=== PATIENT | male | born 1990 | race Caucasian/White ===

== ENCOUNTER 2022-07-09 11:03 | Inpatient (IN) | payer MEDICAID, SELFPAY ==
[2022-07-09 11:06] VITALS: BP 131/92; PULSE 72; RESP 16; O2SAT 97
--- NOTE | 2022-07-09 11:14 | ED_ITS ---
HPI - General Adult General: Chief complaint: Psychiatric Symptoms Stated complaint: SI Time Seen by Provider: 07/09/22 11:05 History of Present Illness: HPI: []yo patient w/ hx of depression presenting to request a behavioral health center for concerns for depression. Patient tells me that he is feeling very depressed and would like to get help. Reports SI without any plan. On arrival, the patient is AAOx3 and cooperative with my evaluation. No focal complaints of chest pain, shortness of breath, palpitations, N/V, focal GI/ complaints. Currently denies HI. No complaints of hallucinations. Onset: acute on chronic Duration: ongoing Location: home Severity: severe Associated symptoms: Deny chest pain, dyspnea, nausea, rash, palpitations or vomiting Review of Systems Const: Denies: fever(s) or chills Eyes: Denies: change in vision ENMT: Denies: mouth pain Card: Denies: chest pain or palpitations Resp: Denies: dyspnea or non-productive cough GI: Denies: abdominal pain, nausea, vomiting or diarrhea : Denies: dysuria Musc: Denies: extremity pain Skin/Breast: Denies: rash or new lesions Neuro: Denies: weakness in extremities Psych: Reports: depression and suicidal ideation Jacob/Lymph: Denies: easy bruising PFSH ED PFSH: Medical History Depression Surgical History History of tonsillectomy Hx of cholecystectomy Family History Mother Cancer thyroid Hypertension Brother Psychiatric illness Other Diabetes Denies family history of CAD (coronary artery disease) Clotting disorder Chronic kidney disease (CKD) Bleeding disorder Stroke Social History Smoking and tobacco status: former smoker Quit status (tobacco): has quit using tobacco Year quit tobacco: 2014 Former quit date comment: 2-3 PPD x 15 yrs Second hand smoke exposure: No Alcohol intake: never Adopted: No Caregiver/support person: Yes Lives independently: Yes Household members: none Marital status: service: No Current occupational status: employed Current occupation: construction History of recent travel: Yes ([place]) Out of state: Yes Current gender identity: Male Cee/Congregation: Oriental orthodox Special cee needs: Yes Agree to transfusion: No Physical Exam Const: COMMON NORMALS: alert HENMT: COMMON NORMALS: atraumatic HEAD & SCALP: atraumatic MOUTH: moist mucous membranes not abnormal Eye: COMMON NORMALS: EOMs intact bilaterally and conjunctivae normal CONJUNCTIVA: Yes conjunctivae normal Neck/C-Spine: COMMON NORMALS: full ROM and supple Resp: COMMON NORMALS: normal respiratory effort and clear to auscultation bilaterally AUSCULTATION: clear to auscultation bilaterally Cardio: COMMON NORMALS: regular rate RATE: regular rate GI: COMMON NORMALS: Soft to palpation and non-tender PALPATION: Yes Soft to palpation Extremity: COMMON NORMALS: full ROM Neuro: SENSORIUM/ORIENTATION: Yes alert MOTOR EXAM: No Abnormal motor strength present and Other motor observations present (no focal motor deficits) Psych: COMMON NORMALS: speech normal SPEECH: Yes normal speech MOOD & AFFECT: Yes depressed mood Course Vital Signs: Vital signs: Vital Signs Pulse Rate 72 07/09/22 11:06 Respiratory Rate 16 07/09/22 11:06 Blood Pressure 131/92 07/09/22 11:06 Pulse Oximetry 97 07/09/22 11:06 Oxygen Delivery Me thod 07/09/22 11:06 MDM - General Adult Medical Decision Making [31]yo patient w/ hx of dperession presenting for SI with worsening depression at the request of [facility]. HDS, exam within normal limit Thoughts are linear and organized, and the patient has no AH/VH, or HI. Clinically the patient displays no overt toxidrome; they are well appearing, with low suspicion for toxic ingestion given history and exam. Symptoms unlikely 2/2 anemia, hypothyroidism, infection, or ICH. Workup: CBC, CMP, Lipase, salicylate/tylenol, serum ethanol, UDS Lab findings: wnl [1:00pm] On reassessment, labs and workup wnl. Patient is hemodynamically stable with no acute medical complaints. Case discussed with psychiatric provider Dr. Dubois at [facility] psych inpatient with recommendation for admission Disposition: Psych Lab Data : 07/09/22 11:34 07/09/22 11:34 Laboratory Results WBC 5.2 10^3/uL (4.0-10.0) 07/09/22 11:34 RBC 4.79 10^6/uL (4.1-5.3) 07/09/22 11:34 Hgb 15.3 g/dL (11.7-16.6) 07/09/22 11:34 Hct 45.9 % (42.0-52.0) 07/09/22 11:34 MCV 95.8 fl (80-94) H 07/09/22 11:34 MCH 31.9 pg (28.0-34.0) 07/09/22 11:34 MCHC 33.3 g/dL (30.0-36.0) 07/09/22 11:34 RDW 13.2 % (12.1-15.1) 07/09/22 11:34 Plt Count 336 10^3/cmm (130-400) 07/09/22 11:34 MPV 9.5 fL (7.4-10.4) 07/09/22 11:34 Neut % (Auto) 50.8 % 07/09/22 11:34 Lymph % (Auto) 38.0 % 07/09/22 11:34 [place] % (Auto) 8.3 % 07/09/22 11:34 Eos % (Auto) 1.9 % 07/09/22 11:34 Baso % (Auto) 0.6 % 07/09/22 11:34 Neut # (Auto) 2.63 10^3/uL (1.8-7.7) 07/09/22 11:34 Lymph # (Auto) 2.0 10^3/uL (0.8-4.8) 07/09/22 11:34 [place] # (Auto) 0.4 10^3/uL (0.2-0.9) 07/09/22 11:34 Eos # (Auto) 0.1 10^3/uL (0.0-0.8) 07/09/22 11:34 Baso # (Auto) 0.0 10^3/uL (0.0-0.1) 07/09/22 11:34 Nucleated RBC % (auto) 0 % 07/09/22 11:34 Nucleated RBCs # 0.0 /100WBC 07/09/22 11:34 Sodium 143 mmol/L (136-145) 07/09/22 11:34 Potassium 4.0 mmol/L (3.5-5.1) 07/09/22 11:34 Chloride 105 mmol/L (98-107) 07/09/22 11:34 Carbon Dioxide 30 mmol/L (22-29) H 07/09/22 11:34 Anion Gap 12.0 (5-19) 07/09/22 11:34 BUN 8 mg/dL (6-20) 07/09/22 11:34 Creatinine 0.6 mg/dL (0.7-1.2) L 07/09/22 11:34 GFR Calculation 156.1 mL/min (90-130) H 07/09/22 11:34 Glucose 88 mg/dL (65-115) 07/09/22 11:34 Calculated Osmolality 294 mOsm/kg (285-295) 07/09/22 11:34 Calcium 9.4 mg/dL (8.5-10.5) 07/09/22 11:34 Total Bilirubin 0.3 mg/dL (0.15-1.2) 07/09/22 11:34 AST 17 U/L (0-40) 07/09/22 11:34 ALT 34 U/L (0-41) 07/09/22 11:34 Alkaline Phosphatase 91 U/L (40-130) 07/09/22 11:34 Total Protein 7.3 g/dL (6.6-8.7) 07/09/22 11:34 Albumin 4.3 g/dL (3.5-5.2) 07/09/22 11:34 Globulin 3.0 g/dL (1.3-4.6) 07/09/22 11:34 Lipase 21 U/L (13-60) 07/09/22 11:34 Salicylates < 0.3 mg/dL (3-10) L 07/09/22 11:34 Acetaminophen < 5.0 ug/mL (10-30) L 07/09/22 11:34 Ethyl Alcohol < 10 mg/dL (0-10) 07/09/22 11:34 Discharge Plan Discharge Patient Disposition: Admitted As Inpatient Clinical Impression: Depression with suicidal ideation Condition: Stable Coding Level of Care Code ED Courtesy Booth Cashier for Chg Fwd Exam Comprehensive
[2022-07-09 11:52] LABS: Basophils % 0.6 %; Eosinophils # 0.1 10^3/uL (0.0-0.8); Eosinophils % 1.9 %; Hematocrit 45.9 % (42.0-52.0); Hemoglobin 15.3 g/dL (11.7-16.6); Mean Corpuscular HGB Conc 33.3 g/dL (30.0-36.0); Mean Corpuscular Hemoglobin 31.9 pg (28.0-34.0); Mean Corpuscular Volume 95.8 fl (80-94); Mean Platelet Volume 9.5 fL (7.4-10.4); Monocytes # 0.4 10^3/uL (0.2-0.9); Monocytes % 8.3 %; Neutrophils # 2.63 10^3/uL (1.8-7.7); Neutrophils % 50.8 %; Nucleated Red Blood Cells % 0 %; Platelet Count 336 10^3/cmm (130-400); Red Blood Count 4.79 10^6/uL (4.1-5.3); Red Cell Distribution Width 13.2 % (12.1-15.1); White Blood Count 5.2 10^3/uL (4.0-10.0)
[2022-07-09 11:57] LABS: Alanine Aminotransferase 34 U/L (0-41); Albumin Level 4.3 g/dL (3.5-5.2); Alkaline Phosphatase 91 U/L (40-130); Aspartate Amino Transferase 17 U/L (0-40); Blood Urea Nitrogen 8 mg/dL (6-20); Calcium 9.4 mg/dL (8.5-10.5); Carbon Dioxide 30 mmol/L (22-29); Chloride 105 mmol/L (98-107); Glomerular Filtration Rate 156.1 mL/min (90-130); Glucose 88 mg/dL (65-115); Lipase 21 U/L (13-60); Osmolality Calculated 294 mOsm/kg (285-295); Sodium 143 mmol/L (136-145); Total Bilirubin 0.3 mg/dL (0.15-1.2); Total Protein 7.3 g/dL (6.6-8.7)
--- NOTE | 2022-07-09 11:58 | PC.PHAR ---
[facility] PT USED TO TAKE WELBUTRIN XL 300MG LAST FILLED AND PICKED UP 04/19/22 30DS AND MERTAZAPINE 15MG FILLED 04/19/22 30DS
[2022-07-09 12:01] LABS: Acetaminophen < 5.0 ug/mL (10-30); Alcohol Level < 10 mg/dL (0-10); Salicylate < 0.3 mg/dL (3-10)
[2022-07-09 13:30] VITALS: BP 125/79; PULSE 59; RESP 20; O2SAT 97
--- NOTE | 2022-07-09 14:50 | PC.NURSE ---
pt resting in bed, offered food/beverage. pt declined. pt currently laying in bed watching tv
--- NOTE | 2022-07-09 16:17 | PC.NURSE ---
attempted to collect urine sample from pt, pt unable to provide sample at this time. adjusted HOB for comfort
[2022-07-09 17:01] VITALS: BP 101/64; PULSE 61; RESP 16; TEMP 36.4; O2SAT 98
[2022-07-09 17:28] VITALS: BP 101/64; PULSE 61; RESP 16; TEMP 36.4
[2022-07-09] MEDS: OLANZapine 5 mg ODT PO (18:26)
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
[2022-07-09 21:49] LABS: Amphetamines Screen Urine Negative (Negative); Barbiturates Screen Urine Negative (Negative); Benzodiazepines Screen Urine Negative (Negative); Cocaine Screen Urine Negative (Negative); Opiate Screen Urine Negative (Negative); PCP Screen Urine Negative (Negative); THC Screen Urine Positive (Negative)
[2022-07-09 22:00] VITALS: BP 101/64; PULSE 61; RESP 16; TEMP 36.4
[2022-07-10 06:00] VITALS: BP 99/57; PULSE 52; RESP 16; TEMP 36.7; O2SAT 94
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
[2022-07-10 12:18] VITALS: BP 99/57; PULSE 52; RESP 16; TEMP 36.7; O2SAT 94
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
--- NOTE | 2022-07-12 08:18 | PC.OT ---
OT EVALUATION ORDERS RECEIVED. PATIENT DISCHARGED BEFORE EVALUATION COULD BE COMPLETED.
== END 2022-07-10 12:50 | disposition home or self-care (01) | DRG 881 ==
LOC: ER 11:13 → NP 16:54
PROVIDERS: Admitting Provider Psychiatry & Neurology Psychiatry; Emergency Provider Emergency Medicine; Visit Provider Psychiatry & Neurology Psychiatry
DX: F32.A Depression, unspecified (principal); R45.851 Suicidal ideations; Z87.891 Personal history of nicotine dependence
CPT/HCPCS: 36415; 80053; 80306; 80307; 83690; 85025; 99285

== ENCOUNTER 2022-07-19 15:02 | Emergency (ER) | payer MEDICAID, SELFPAY ==
[2022-07-19 15:21] VITALS: BP 122/77; PULSE 92; RESP 18; TEMP 36.9; O2SAT 97; BMI 31.8
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
[2022-07-19 16:59] LABS: Basophils # 0.1 10^3/uL (0.0-0.1); Basophils % 0.6 %; Eosinophils # 0.2 10^3/uL (0.0-0.8); Eosinophils % 1.9 %; Hematocrit 46.1 % (42.0-52.0); Hemoglobin 15.3 g/dL (11.7-16.6); Lymphocytes # 2.4 10^3/uL (0.8-4.8); Lymphocytes % 27.1 %; Mean Corpuscular HGB Conc 33.2 g/dL (30.0-36.0); Mean Corpuscular Hemoglobin 32.3 pg (28.0-34.0); Mean Corpuscular Volume 97.5 fl (80-94); Mean Platelet Volume 9.4 fL (7.4-10.4); Monocytes # 0.8 10^3/uL (0.2-0.9); Monocytes % 9.2 %; Neutrophils % 60.6 %; Nucleated Red Blood Cells % 0 %; Platelet Count 372 10^3/cmm (130-400); Red Blood Count 4.73 10^6/uL (4.1-5.3); Red Cell Distribution Width 13.8 % (12.1-15.1); White Blood Count 8.7 10^3/uL (4.0-10.0)
[2022-07-19 17:13] LABS: Alanine Aminotransferase 46 U/L (0-41); Albumin Level 4.6 g/dL (3.5-5.2); Alkaline Phosphatase 95 U/L (40-130); Anion Gap 14.2 (5-19); Aspartate Amino Transferase 15 U/L (0-40); Blood Urea Nitrogen 8 mg/dL (6-20); Calcium 9.3 mg/dL (8.5-10.5); Carbon Dioxide 27 mmol/L (22-29); Chloride 102 mmol/L (98-107); Globulin 2.6 g/dL (1.3-4.6); Glomerular Filtration Rate 156.1 mL/min (90-130); Glucose 72 mg/dL (65-115); Lipase 20 U/L (13-60); Osmolality Calculated 285 mOsm/kg (285-295); Potassium 4.2 mmol/L (3.5-5.1); Sodium 139 mmol/L (136-145); Total Bilirubin 0.4 mg/dL (0.15-1.2); Total Protein 7.2 g/dL (6.6-8.7)
[2022-07-19 17:30] LABS: Add Urine Microscopic? NO
[2022-07-19 17:38] LABS: Bilirubin Urine Neg (Negative); Blood Urine Neg (Negative); Glucose Urine UA Norm (Normal); Ketones Urine Negative (Negative); Leukocyte Esterase Urine Negative (Negative); Nitrate Urine Negative (Negative); Protein Urine Neg (Negative); Urine Appearance Clear (CLEAR); Urine Color Yellow (Yellow); Urobilinogen Urine Norm (Negative); pH Urine 6 (5-7)
[2022-07-19 18:11] LABS: WBC Urine RARE /hpf (0-5)
[2022-07-19 18:12] LABS: Add Urine Culture? No; Bacteria Urine TRACE /hpf; Calcium Oxalate Crystals Urine 0-4 /hpf
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
--- NOTE | 2022-07-19 18:48 | CTR_ITS ---
PROCEDURE INFORMATION: Exam: CT Abdomen And Pelvis With Contrast Exam date and time: 07/19/2022 7:22 PM Age: 31 years old Clinical indication: Abdominal pain; Localized; Lower; Additional info: L abdominal pain, intermittent blood in urine and stool TECHNIQUE: Imaging protocol: Computed tomography of the abdomen and pelvis with contrast. Radiation optimization: All CT scans at this facility use at least one of these dose optimization techniques: automated exposure control; mA and/or kV adjustment per patient size (includes targeted exams where dose is matched to clinical indication); or iterative reconstruction. Contrast material: OMNI 350; Contrast volume: 100 ml; Contrast route: INTRAVENOUS (IV); COMPARISON: CR (CHEST, ) 07/19/2022 6:37 PM RADIATION DOSE METRICS: Total DLP (mGy-cm): 938.03 FINDINGS: Liver: Normal. No mass. Gallbladder and bile ducts: Cholecystectomy. No ductal dilation. Pancreas: Normal. No ductal dilation. Spleen: Normal. No splenomegaly. Adrenal glands: Normal. No mass. Kidneys and ureters: Normal. No hydronephrosis. Stomach and bowel: Unremarkable. No obstruction. No mucosal thickening. Appendix: No evidence of appendicitis. Intraperitoneal space: Unremarkable. No free air. No significant fluid collection. Vasculature: Unremarkable. No abdominal aortic aneurysm. Lymph nodes: Unremarkable. No enlarged lymph nodes. Urinary bladder: Unremarkable as visualized. Reproductive: Unremarkable as visualized. Bones/joints: No acute fracture. Degenerative disc disease at L5-S1. Soft tissues: Unremarkable. CT/CT abdomen pelvis w con* [id number] IMPRESSION: No acute traumatic intra-abdominal findings.
[2022-07-19] MEDS: sodium chloride 0.9% 1,000 ML 999 ML IV (19:10)
[2022-07-19] MEDS: dicyclomine 10 mg Capsule PO (19:14)
[2022-07-19] MEDS: ketorolac 30 mg/mL INJ 15 MG IVP (19:14)
[2022-07-19] MEDS: ondansetron 2 mg/ML SDV 2 mL 4 MG IVP (19:15)
[2022-07-19 19:24] VITALS: BP 119/80; PULSE 66; RESP 14; O2SAT 99
[2022-07-19] MEDS: iohexol 350 mg/mL 100 mL Btl IV (19:29)
[2022-07-19 20:19] VITALS: BP 123/81; RESP 14
--- NOTE | 2022-07-20 10:38 | DCPLANNER ---
Addendum entered by Katarzyna Hill 09/29/22 11:24: Patient had a follow up appointment scheduled with general surgery - patient did attend appointment. Addendum entered by Katarzyna Hill 07/22/22 15:07: Patient has a follow up appointment scheduled for Tuesday, August 04, 2022 at 8:[address] Klein at general surgery. Clinic will call patient with appointment information. Original Note: territory manager general sales had message to schedule a follow up appointment for patient with general surgery. territory manager general sales sent patients information to the front desk host at general surgery. Clinic will call patient with appointment information.
== END 2022-07-19 20:29 | disposition home or self-care (01) ==
PROVIDERS: Family Medicine; Emergency Provider Emergency Medicine
DX: R10.9 Unspecified abdominal pain (principal); K92.1 Melena; R31.9 Hematuria, unspecified
CPT/HCPCS: 36415; 71045; 74177; 80053; 81001; 83690; 85025; 96361; 96374; 96375; 99285; J1885; J2405; J7030; Q9967

== ENCOUNTER 2022-08-06 08:09 | Day surgery (SDC) | payer MEDICAID, SELFPAY ==
[2022-08-05 14:01] VITALS: BMI 31.1
[2022-08-06 08:41] VITALS: BP 157/98; PULSE 112; RESP 22; TEMP 36.8; O2SAT 97
[2022-08-06] MEDS: sodium chloride 0.9% 1,000 ML 30 ML IV (08:58)
--- NOTE | 2022-08-06 09:11 | ANES.PREANE2 ---
Pre-Anesthetic Assessment Height/Weight: Height 1.83 m Weight 104.326 kg Temp Pulse Resp BP Pulse Ox 98.2 F 112 H 22 H 157/98 97 08/06/22 08:41 08/06/22 08:41 08/06/22 08:41 08/06/22 08:41 08/06/22 08:41 Preop Diagnosis: bleeding per rectum Operation Date: 08/06/22 09:45 Proposed Procedures p 84030 EGD [id number] Colonoscopy, k62.5(Not Applicable) - Dwight Klein MD s Colonoscopy(Not Applicable) - Dwight Klein MD Familial anesthetic complications: none Was Beta Garth taken within 24 hours: N/A Was Clonidine taken within 24 hours: N/A Last intake: Intake Last Liquid Date 08/05/22 Last Liquid Time 20:00 Last Solid Date 08/04/22 Last Solid Time 16:00 Social No alcohol and No tobacco Exam alert, oriented x 3, clear to auscultation bilaterally and regular rate & rhythm Airway Submandibular: within normal limits Cervical ROM: within normal limits Mallampati: Class I Dentition: full Pulmonary None reported CV/HEM None reported None reported Hepatic None reported GI None reported Metabolic None reported Musc/skel Lower Back Pain Neuropsych Anxiety and Headache Anesthetic Plan ASA status: 2 Anesthesia: MAC Risk of > 500 ml blood loss (7ml/kg in children): No Medications/Allergies Home Medications Medication Instructions Recorded Confirmed Last Taken Type bupropion HCl 300 mg 24 hr tablet, 300 mg PO DAILY #30 tabs 07/10/22 08/06/22 08/05/22 Rx extended release (Wellbutrin XL) olanzapine 5 mg tablet (Zyprexa) 5 mg PO QPM #30 tabs 07/10/22 08/06/22 08/05/22 Rx dicyclomine 10 mg capsule 10 mg PO BID PRN abdominal 07/19/22 08/06/22 08/05/22 Rx discomfort #20 caps eszopiclone 3 mg tablet (Lunesta) 3 mg PO BEDTIME 07/19/22 08/06/22 08/05/22 History pantoprazole 40 mg tablet,delayed 40 mg PO DAILY 30 days #30 tabs 08/06/22 Unknown Rx release (Protonix) Allergies Allergy/AdvReac Type Severity Reaction Status Date / Time No Known Allergies Allergy Verified 08/06/22 09:13 Current Medications Generic Name Dose Route Start Last Admin Trade Name Maria G PRN Reason Stop Dose Admin Sodium Chloride 1,000 mls @ 30 mls/hr 08/06/22 08:45 08/06/22 08:58 Sodium Chloride 0.9% IV 08/07/22 08:44 30 mls/hr .Q24H MARISSA Administration PFSH Anesthesia Medical History Depression Surgical History History of tonsillectomy Hx of cholecystectomy Family History Mother Cancer thyroid Hypertension Brother Psychiatric illness Other Diabetes Denies family history of CAD (coronary artery disease) Clotting disorder Chronic kidney disease (CKD) Bleeding disorder Stroke Social History Smoking and tobacco status: former smoker Quit status (tobacco): has quit using tobacco Year quit tobacco: 2014 Former quit date comment: 2-3 PPD x 15 yrs Second hand smoke exposure: No Alcohol intake: never Adopted: No Caregiver/support person: Yes Lives independently: Yes Household members: none Marital status: service: No Current occupational status: employed Current occupation: construction History of recent travel: Yes ([place]) Out of state: Yes Current gender identity: Male Cee/Rastafari: Religion Special cee needs: Yes Agree to transfusion: No Data Anesthesia Cardiac Studies: No Data to Display
--- NOTE | 2022-08-06 09:28 | W.PM.OPSUD ---
Surgery/Procedure H&P Update DATE OF PROCEDURE: August 06, 2022 DATE H&P PERFORMED: 08/04/22 H&P UPDATE INFORMATION: I have reviewed H&P completed within last 30 days, I have examined patient prior to procedure and No changes to prior documentation PREOP DIAGNOSIS: bleeding per rectum PRIMARY INDICATION FOR PROCEDURE: The same PLANNED PROCEDURE: Operation Date: 08/06/22 09:45 Proposed Procedures p 17029 EGD [id number] Colonoscopy, k62.5(Not Applicable) - Dwight Klein MD s Colonoscopy(Not Applicable) - Dwight Klein MD
[2022-08-06 09:57] VITALS: BP 140/86; PULSE 103; RESP 12; TEMP 36.6; O2SAT 95
[2022-08-06 10:07] VITALS: BP 117/80; PULSE 113; RESP 14; O2SAT 98
--- NOTE | 2022-08-06 10:16 | ANE.PACU2 ---
Inpatient post-anesthesia follow up: Airway intact: Yes Vital signs: Temperature 97.8 F Pulse Rate 113 Respiratory Rate 14 Blood Pressure 117/80 Pulse Oximetry 98 Oxygen Delivery Me thod Room Air Oxygen Flow Rate Fraction of Inspir ed Oxygen Hydration adequate: Yes Nausea and vomiting: No Pain level: 1 Mental status: Baseline
[2022-08-06 10:25] VITALS: BP 122/99; PULSE 115; RESP 14; O2SAT 96
== END 2022-08-06 10:30 | disposition home or self-care (01) ==
PROVIDERS: Visit Provider Surgery
PROC: 0DJ08ZZ Inspection of Upper Intestinal Tract, Via Natural or Artificial Opening Endoscopic (ICD-10-PCS; CPT 43235; principal; 2022-08-06 09:45)
PROC: 0DJD8ZZ Inspection of Lower Intestinal Tract, Via Natural or Artificial Opening Endoscopic (ICD-10-PCS; CPT 45378; 2022-08-06 09:45)
DX: K62.5 Hemorrhage of anus and rectum (principal); K21.00 Gastro-esophageal reflux disease with esophagitis, without bleeding; K29.50 Unspecified chronic gastritis without bleeding; B96.81 Helicobacter pylori [H. pylori] as the cause of diseases classified elsewhere; F32.A Depression, unspecified; Z87.891 Personal history of nicotine dependence
CPT/HCPCS: 43239; 45378; 88305; J2704; J7030